=== PATIENT | male | born 1995 | race Two or more races ===

== ENCOUNTER 2024-12-31 15:01 | Emergency (ER) | payer OTHER ==
[~2024-12-31] VITALS: Ht 180.3 cm; Wt 66.3 kg
[2024-12-31 15:10] VITALS: BP 154/91; PULSE 68; RESP 16; O2SAT 98
[2025-01-01] MEDS ORDERED: NAPR-746 PO (13:07)
[2025-01-01] MEDS ORDERED: CEPH500C PO (13:07)
== END 2024-12-31 15:22 | disposition left against medical advice (07) ==
LOC: ER 15:01
DX: M25.512 Pain in left shoulder (principal); Z53.21 Procedure and treatment not carried out due to patient leaving prior to being seen by health care provider

== ENCOUNTER 2025-01-01 11:41 | Emergency (ER) | payer OTHER ==
[~2025-01-01] VITALS: Ht 180.3 cm; Wt 68.9 kg
[2025-01-01 11:43] VITALS: TEMP 98.1
[2025-01-01 11:51] VITALS: BP 140/94; PULSE 65; RESP 16; O2SAT 98
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
[2025-01-01] MEDS: KETOROLAC TROMETH 60MG/2ML VIAL IM ONE (13:01)
[2025-01-01] MEDS ORDERED: NAPR-746 PO (13:07)
[2025-01-01] MEDS ORDERED: CEPH500C PO (13:07)
== END 2025-01-01 13:12 | disposition home or self-care (01) ==
LOC: ER 11:45
DX: S46.912D Strain of unspecified muscle, fascia and tendon at shoulder and upper arm level, left arm, subsequent encounter (principal); T22.012D Burn of unspecified degree of left forearm, subsequent encounter; T23.271D Burn of second degree of right wrist, subsequent encounter; T23.272D Burn of second degree of left wrist, subsequent encounter; F17.210 Nicotine dependence, cigarettes, uncomplicated; Z79.899 Other long term (current) drug therapy; X08.8XXD Exposure to other specified smoke, fire and flames, subsequent encounter
CPT/HCPCS: 96372; 99283; J1885